=== PATIENT | male | born 1930 | race Hispanic/Latino ===

== ENCOUNTER 2017-02-25 06:38 | Outpatient (CLI) | payer MEDICARE, OTHER ==
--- NOTE | 2017-02-26 09:58 | PET Report ---
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 TECHNIQUE: 14.8 millicuries F-18 FDG was administered intravenously. Noncontrast CT images and PET images were obtained from the skull base to the proximal thighs. Fused images were reviewed on a workstation. The patient's blood glucose level measured 116. COMPARISON: None at this facility. FINDINGS: BRAIN: physiologic FDG uptake in the imaged brain. NECK: physiologic FDG uptake. MEDIASTINUM: physiologic FDG uptake. LUNGS: physiologic FDG uptake. PLEURA/PERICARDIUM: physiologic FDG uptake. Small layering right pleural effusion is noted. THORACIC LYMPH NODES: physiologic FDG uptake. HEPATOBILIARY: There is heterogeneous increased uptake throughout the liver consistent with a neoplastic process. There are multiple ill-defined hypodense masses throughout the liver measuring up to 6 cm. There is abnormal uptake throughout the liver which is most pronounced in the left hepatic lobe with Max SUV measuring 9.1. There is moderate ascites. No abnormal peritoneal uptake. PANCREAS: physiologic FDG uptake. SPLEEN: physiologic FDG uptake. ADRENAL GLANDS: physiologic FDG uptake. KIDNEYS/RENAL COLLECTING SYSTEMS: physiologic FDG uptake. BOWEL/MESENTERY: There is a solitary focus of increased uptake in the left abdomen with Max SUV measuring 6.2. This appears to correlate with a small bowel loop in the left abdomen. There is no obvious mass in this area on CT imaging. It is unclear if this represents an underlying metastatic lesion or physiologic bowel uptake. PELVIC VISCERA: physiologic FDG uptake. ABDOMINAL/PELVIC LYMPH NODES: physiologic FDG uptake. MUSCULOSKELETAL: A 3.8 x 2.9 cm soft tissue density mass erodes into the left superior pelvic ramus. Max SUV measures 5.6. The remaining structures are demineralized with degenerative change. IMPRESSION: There is diffuse abnormal uptake throughout the liver consistent with multifocal liver cancer or metastatic disease to the liver. A hypermetabolic mass is identified in the left side of the pelvis which erodes into the left superior pelvic ramus. There is a solitary focus of abnormal radiotracer uptake in the left abdomen which correlates with a small bowel loop. It is unclear if this represents a metastatic lesion or physiologic uptake. There is no defined mass on CT imaging.
== END 2017-02-25 06:39 | disposition home or self-care (01) ==
LOC: PET 06:38
PROVIDERS: ATTEND Internal Medicine Hematology & Oncology
DX: C78.7 Secondary malignant neoplasm of liver and intrahepatic bile duct (principal); J90 Pleural effusion, not elsewhere classified; R97.0 Elevated carcinoembryonic antigen [CEA]; R63.0 Anorexia; R64 Cachexia; R53.83 Other fatigue
CPT/HCPCS: 78815; 82962; A9552